=== PATIENT | male | born 1965 | race Caucasian/White ===

== ENCOUNTER 2016-12-08 17:58 | Emergency (ER) | payer MEDICARE, OTHER ==
[2016-12-08 21:03] LABS: BASO # 0.1 10_X3_uL (0.0-0.1); BASO % 1.1 % (0.2-1.2); EOS # 0.2 10_X3_uL (0.0-0.5); EOS % 3.6 % (0.8-7.0); GRAN # 3.2 10_X3_uL (1.8-5.4); GRAN % 60.1 % (34.0-67.9); HEMATOCRIT 43.3 % (40-51); HEMOGLOBIN 14.6 g/dL (13.7-17.5); LYMPH # 1.1 10_X3_uL (1.3-3.6); LYMPH % 21.5 % (21.8-53.1); MEAN CORPUSCULAR HEMOGLOBIN 26.5 pg (27.0-33.0); MEAN CORPUSCULAR HGB CONC 33.7 g/dL (32.0-36.0); MEAN CORPUSCULAR VOLUME 78.6 fL (79-92); MEAN PLATELET VOLUME 10.5 fl (7.5-11.5); MONO # 0.7 10_X3_uL (0.3-0.8); MONO % 13.7 % (5.3-12.2); PLATELET COUNT 211 x10_3/uL (163-337); RED BLOOD COUNT 5.51 x10_6/uL (4.6-6.1); RED CELL DISTRIBUTION WIDTH 14.8 % (11.6-14.4); WHITE BLOOD COUNT 5.3 x10_3/uL (4.2-9.1)
[2016-12-08 22:24] LABS: CARBON DIOXIDE 20 mmol/L (21-32); CREATININE 0.8 mg/dL (0.6-1.3); GLUCOSE,RANDOM 205 mg/dL (70-99); POTASSIUM 3.4 mmol/L (3.5-5.1); SODIUM 136 mmol/L (136-145)
[2016-12-08 22:26] LABS: BLOOD UREA NITROGEN 7 mg/dL (7-18)
== END 2016-12-09 02:05 | disposition short-term general hospital (02) ==
LOC: ER 17:58
PROVIDERS: Internal Medicine
DX: J44.0 Chronic obstructive pulmonary disease with (acute) lower respiratory infection (principal); J18.9 Pneumonia, unspecified organism; J98.11 Atelectasis; G40.909 Epilepsy, unspecified, not intractable, without status epilepticus; E11.9 Type 2 diabetes mellitus without complications; Z88.5 Allergy status to narcotic agent; Z87.891 Personal history of nicotine dependence
CPT/HCPCS: 36415; 71020; 80048; 83605; 85025; 87040; 87070; 87400; 87880; 96361; 96365; 96372; 99070; 99283; 99283-25

== ENCOUNTER 2017-02-21 13:05 | Observation (INO) | payer MEDICARE, OTHER ==
[~2017-02-21] VITALS: Ht 182.9 cm; Wt 97.0 kg
[2017-02-21 13:29] LABS: BASO # 0.1 10_X3_uL (0.0-0.1); BASO % 0.5 % (0.2-1.2); EOS # 0.1 10_X3_uL (0.0-0.5); EOS % 1.2 % (0.8-7.0); GRAN # 8.5 10_X3_uL (1.8-5.4); GRAN % 81.2 % (34.0-67.9); HEMATOCRIT 43.6 % (40-51); HEMOGLOBIN 14.8 g/dL (13.7-17.5); LYMPH # 1.1 10_X3_uL (1.3-3.6); LYMPH % 10.2 % (21.8-53.1); MEAN CORPUSCULAR HEMOGLOBIN 26.4 pg (27.0-33.0); MEAN CORPUSCULAR HGB CONC 33.9 g/dL (32.0-36.0); MEAN CORPUSCULAR VOLUME 77.7 fL (79-92); MEAN PLATELET VOLUME 9.9 fl (7.5-11.5); MONO # 0.7 10_X3_uL (0.3-0.8); MONO % 6.9 % (5.3-12.2); PLATELET COUNT 310 x10_3/uL (163-337); RED BLOOD COUNT 5.61 x10_6/uL (4.6-6.1); RED CELL DISTRIBUTION WIDTH 15.9 % (11.6-14.4); WHITE BLOOD COUNT 10.5 x10_3/uL (4.2-9.1)
[2017-02-21 13:45] LABS: ALBUMIN 4.6 gm/dL (3.4-5.0); ALKALINE PHOSPHATASE 67 U/L (50-136); ALT/SGPT 19 U/L (7.53-40.17); AST/SGOT 20 U/L (6.66-35.34); BILIRUBIN,TOTAL 0.71 mg/dL (0.0-1.0); BLOOD UREA NITROGEN 10 mg/dL (7-18); CALCIUM 9.7 mg/dL (8.7-10.7); CARBON DIOXIDE 20 mmol/L (21-32); CREATININE 0.8 mg/dL (0.6-1.3); GLUCOSE,RANDOM 146 mg/dL (70-99); POTASSIUM 3.9 mmol/L (3.5-5.1); SODIUM 140 mmol/L (136-145); TOTAL PROTEIN 7.8 gm/dL (6.4-8.2)
[2017-02-21 15:57] LABS: INR 1.1 (1.0-1.1); PARTIAL THROMBOPLASTIN TIME 24.7 SECONDS (21.8-28.4); PROTHROMBIN TIME (PATIENT) 11.4 SECONDS (9.6-10.8)
[2017-02-21 20:05] LABS: CKMB < 1.0 ng/ml (0.0-5.0); TROP-I < 0.30 NG/ML (0.00-0.30)
[2017-02-22 02:12] LABS: CKMB < 1.0 ng/ml (0.0-5.0); TROP-I < 0.30 NG/ML (0.00-0.30)
[2017-02-22 08:13] LABS: CKMB < 1.0 ng/ml (0.0-5.0); TROP-I < 0.30 NG/ML (0.00-0.30)
== END 2017-02-23 10:53 | disposition home or self-care (01) ==
LOC: ER 13:05 → MS 14:36 → UNDODEPER 02-24 15:02
PROVIDERS: General Practice; ADMIT Family Medicine
DX: R07.89 Other chest pain (principal); M79.602 Pain in left arm; I10 Essential (primary) hypertension; Z95.0 Presence of cardiac pacemaker; R79.1 Abnormal coagulation profile; Z88.5 Allergy status to narcotic agent; Z99.3 Dependence on wheelchair; Z87.828 Personal history of other (healed) physical injury and trauma; Z79.891 Long term (current) use of opiate analgesic; Z79.899 Other long term (current) drug therapy; Z79.82 Long term (current) use of aspirin
CPT/HCPCS: 36415; 71010; 78582; 80053; 80061; 82550; 82553; 83036; 84484; 85025; 85379; 85610; 85730; 93005; 93041; 93306; 96372; 96374; 99070; 99284; 99285-25; A9539; A9540; G0378